=== PATIENT | male | born 1985 | race Caucasian/White ===

== ENCOUNTER → 2017-06-14 | Outpatient (CLI) | payer OTHER ==
--- NOTE | 2017-06-14 15:08 | REP ---
Chest PA and lateral views: There are no comparisons. The lung hope are clear. The cardiac size is normal The blanca, mediastinum, and bony thorax are unremarkable. Impression: Negative PA and lateral chest. Signed by Grady Hwang MD 06/14/2017 03:00 P
== END ==
LOC: M ADAMS 13:41
PROVIDERS: ATTEND Physician Assistant Medical
DX: R07.9 Chest pain, unspecified (principal)

== ENCOUNTER → 2017-06-15 | Outpatient (REF) | payer OTHER ==
[2017-06-15 17:08] LABS: BASO % 0.6 % (0.0-1.0); EOS # 0.1 K/mm3 (0.0-0.50); EOS % 2.3 % (0.0-3.0); LYMPH # 1.9 K/mm3 (1.5-4.5); MEAN CORPUSCULAR HEMOGLOBIN 30.5 pg (27.0-33.0); MEAN CORPUSCULAR HGB CONC 33.4 g/dl (32.0-36.5); MEAN CORPUSCULAR VOLUME 91.4 fl (80.0-96.0); MONO # 0.3 K/mm3 (0.0-0.8); MONO % 5.1 % (0.0-5.0); NEUTROPHILS # 3.4 K/mm3 (1.8-7.7); NEUTROPHILS % 57.9 % (36.0-66.0); RED CELL DISTRIBUTION WIDTH 12.6 % (11.5-14.5); WHITE BLOOD COUNT 5.8 K/mm3 (4.0-10.0)
[2017-06-15 17:15] LABS: ALBUMIN/GLOBULIN RATIO 1.33 (1.00-1.93); ALKALINE PHOSPHATASE 83 U/L (45-117); ALT/SGPT 24 U/L (12-78); ANION GAP 9 MEQ/L (8-16); AST/SGOT 17 U/L (15-37); BILIRUBIN,TOTAL 0.6 MG/DL (0.2-1.0); BLOOD UREA NITROGEN 15 MG/DL (7-18); CALCIUM LEVEL 8.4 MG/DL (8.5-10.1); CARBON DIOXIDE LEVEL 27 MEQ/L (21-32); CHLORIDE LEVEL 106 MEQ/L (98-107); CHOLESTEROL LEVEL 219 MG/DL (<200); CREATININE FOR GFR 1.02 MG/DL (0.70-1.30); ESTRADIOL 30.6 PG/ML (<39.8); FERRITIN 288 NG/ML (26-388); GLOMERULAR FILTRATION RATE > 60.0 (>60); GLUCOSE, FASTING 106 MG/DL (70-105); POTASSIUM SERUM 4.2 MEQ/L (3.5-5.1); SODIUM LEVEL 142 MEQ/L (136-145); TRIGLYCERIDES LEVEL 122 MG/DL (<150)
[2017-06-15 17:16] LABS: FOLATE 12.5 NG/ML (>5.4); VITAMIN B12 LEVEL 603 PG/ML (247-911)
[2017-06-18 00:06] LABS: Lyme Disease IgG/IgM Antibodie <0.91 ISR (0.00-0.90); Lyme Disease IgM Ab Quantitati <0.80 index (0.00-0.79)
[2017-06-19 09:51] LABS: ALBUMIN 4.42 GM/DL (3.29-5.55); ALBUMIN % 63.1 % (55.8-66.1); GAMMA GLOBULIN % 13.6 % (11.1-18.8)
== END ==
LOC: M LAB REF 15:49
PROVIDERS: ATTEND Physician Assistant Medical
DX: R53.83 Other fatigue (principal); R07.9 Chest pain, unspecified

== ENCOUNTER → 2017-06-19 | Outpatient (CLI) | payer OTHER ==
--- NOTE | 2017-06-20 06:11 | ECGEPIP ---
Stationary ECG Study [facility] Test Date: 2017-06-19 Pat Name: BAO MCCORMACK Department: Room: - Gender: [employer]: : [id number] Requested By: Jodie Alcazar Order Number: [id number] Reading MD: Linda Portillo Measurements Intervals [place] Rate: 56 P: 53 WA: 152 QRS: 25 QRSD: 97 T: 14 QT: 429 QTc: 415 Interpretive Statements SINUS BRADYCARDIA WITH SINUS ARRHYTHMIA NO PRIOR Electronically Signed On 06-20-2017 6:11:06 EDT by Linda Portillo
== END ==
LOC: M EKG 17:37
PROVIDERS: ATTEND Physician Assistant Medical
DX: R00.1 Bradycardia, unspecified (principal)

== ENCOUNTER → 2017-08-15 | Outpatient (REF) | payer OTHER | LOC: M LAB REF 12:15 | PROVIDERS: ATTEND Physician Assistant Medical | DX: E78.2 Mixed hyperlipidemia (principal) ==

== ENCOUNTER → 2017-10-18 | Outpatient (REF) | payer OTHER ==
[2017-10-18 12:47] LABS: ALBUMIN 4.5 GM/DL (3.2-5.2); ALBUMIN/GLOBULIN RATIO 1.55 (1.00-1.93); ALKALINE PHOSPHATASE 87 U/L (45-117); ALT/SGPT 30 U/L (12-78); ANION GAP 6 MEQ/L (8-16); AST/SGOT 20 U/L (7-37); BILIRUBIN,TOTAL 0.6 MG/DL (0.2-1.0); BLOOD UREA NITROGEN 16 MG/DL (7-18); CALCIUM LEVEL 8.7 MG/DL (8.5-10.1); CARBON DIOXIDE LEVEL 31 MEQ/L (21-32); CHLORIDE LEVEL 105 MEQ/L (98-107); CHOLESTEROL LEVEL 157 MG/DL (<200); CREATININE FOR GFR 1.02 MG/DL (0.70-1.30); GLOMERULAR FILTRATION RATE > 60.0 (>60); GLUCOSE, FASTING 96 MG/DL (70-105); POTASSIUM SERUM 4.4 MEQ/L (3.5-5.1); SODIUM LEVEL 142 MEQ/L (136-145); TOTAL PROTEIN 7.4 GM/DL (6.4-8.2); TRIGLYCERIDES LEVEL 140 MG/DL (<150)
== END ==
LOC: M LABDRWAD 12:13
PROVIDERS: ATTEND Physician Assistant Medical
DX: E78.2 Mixed hyperlipidemia (principal)

== ENCOUNTER → 2017-12-16 | Outpatient (CLI) | payer OTHER | LOC: M ADAMS 13:35 | DX: J20.9 Acute bronchitis, unspecified (principal) ==

== ENCOUNTER 2018-02-09 11:37 | Emergency (ER) | payer OTHER ==
[2018-02-09] MEDS: ADACEL/BOOSTRIX VACCINE (DIPHTH/PERTUSS/ACELL/TETANUS)0.5ML SYR (90715) IM (12:44)
[2018-02-09] MEDS: LIDOCAINE 1% MDV 20ML VIAL SC (12:45)
== END 2018-02-09 14:04 | disposition home or self-care (01) ==
LOC: M ED 11:37
DX: S01.511A Laceration without foreign body of lip, initial encounter (principal); W22.8XXA Striking against or struck by other objects, initial encounter; Y92.9 Unspecified place or not applicable; Y93.9 Activity, unspecified; Y99.0 Civilian activity done for income or pay; Z79.899 Other long term (current) drug therapy
CPT/HCPCS: 90715

== ENCOUNTER → 2018-02-15 | Outpatient (REF) | payer OTHER | LOC: M LAB REF 19:20 | DX: J02.9 Acute pharyngitis, unspecified (principal) | CPT/HCPCS: 87081 ==

== ENCOUNTER → 2019-09-06 | Outpatient (REF) | payer OTHER ==
[~2019-09-06] MED LIST: SIMV20TA2
[2019-09-06 13:02] LABS: ALBUMIN 4.4 GM/DL (3.2-5.2); ALT/SGPT 29 U/L (12-78); BILIRUBIN,TOTAL 0.7 MG/DL (0.2-1.0); BLOOD UREA NITROGEN 16 MG/DL (7-18); CALCIUM LEVEL 9.4 MG/DL (8.5-10.1); CARBON DIOXIDE LEVEL 30 MEQ/L (21-32); CHLORIDE LEVEL 104 MEQ/L (98-107); CREATININE FOR GFR 1.09 MG/DL (0.70-1.30); GLOMERULAR FILTRATION RATE > 60.0 (>60); GLUCOSE, FASTING 89 MG/DL (70-100); SODIUM LEVEL 139 MEQ/L (136-145); TOTAL PROTEIN 7.9 GM/DL (6.4-8.2)
== END ==
LOC: M SFHCADAM 09:45
PROVIDERS: ATTEND Family Medicine
DX: E78.2 Mixed hyperlipidemia (principal)

== ENCOUNTER → 2020-10-08 | Outpatient (REF) | payer OTHER ==
[~2020-10-08] MED LIST changes: -SIMV20TA2; +SIMV20TA22
[2020-10-08 16:43] LABS: BASO # 0.1 10^3/uL (0.0-0.2); BASO % 0.7 % (0.0-1.0); EOS # 0.2 10^3/uL (0.0-0.5); EOS % 1.9 % (0.0-3.0); HEMOGLOBIN 14.9 g/dl (13.5-17.5); LYMPH # 3.4 10^3/uL (1.5-5.0); LYMPH % 41.7 % (24.0-44.0); MEAN CORPUSCULAR HEMOGLOBIN 28.2 pg (27.0-33.0); MEAN CORPUSCULAR HGB CONC 30.4 g/dl (32.0-36.5); MEAN CORPUSCULAR VOLUME 92.6 fl (80.0-96.0); MONO # 0.5 10^3/uL (0.0-0.8); MONO % 6.3 % (0.0-5.0); NEUTROPHILS % 48.8 % (36.0-66.0); PLATELET COUNT, AUTOMATED 261 10^3/uL (150-450); RED BLOOD COUNT 5.29 10^6/uL (4.30-6.10); WHITE BLOOD COUNT 8.1 10^3/uL (4.0-10.0)
[2020-10-08 17:11] LABS: ALBUMIN 4.2 GM/DL (3.2-5.2); ALT/SGPT 28 U/L (12-78); BILIRUBIN,TOTAL 0.7 MG/DL (0.2-1.0); BLOOD UREA NITROGEN 15 MG/DL (7-18); CALCIUM LEVEL 9.4 MG/DL (8.5-10.1); CARBON DIOXIDE LEVEL 31 MEQ/L (21-32); CHLORIDE LEVEL 104 MEQ/L (98-107); CHOLESTEROL LEVEL 258 MG/DL (<200); CREATININE FOR GFR 1.13 MG/DL (0.70-1.30); GLOMERULAR FILTRATION RATE > 60.0 (>60); GLUCOSE, FASTING 88 MG/DL (70-100); HDL CHOLESTEROL 43 MG/DL (>40); LDL CHOLESTEROL 156 MG/DL (<100); NON-HDL-C 215 MG/DL; POTASSIUM SERUM 4.3 MEQ/L (3.5-5.1); SODIUM LEVEL 138 MEQ/L (136-145); TOTAL PROTEIN 7.7 GM/DL (6.4-8.2); TRIGLYCERIDES LEVEL 297 MG/DL (<150)
== END ==
LOC: M SFHCADAM 11:59
PROVIDERS: ATTEND Family Medicine
DX: Z00.00 Encounter for general adult medical examination without abnormal findings (principal)

== ENCOUNTER → 2021-06-03 | Outpatient (REF) | payer OTHER ==
[2021-06-03 13:10] LABS: CHOLESTEROL RISK RATIO 6.5 (<5); FREE T4 0.92 NG/DL (0.76-1.46); THYROID STIMULATING HORMONE 2.47 uIU/ML (0.358-3.740)
== END ==
LOC: M SFHCADAM 09:30
PROVIDERS: ATTEND Family Medicine
DX: F32.9 Major depressive disorder, single episode, unspecified (principal); E78.2 Mixed hyperlipidemia